=== PATIENT | male | born 1985 ===

== ENCOUNTER → 2016-07-30 | Outpatient (CLI) | payer SELFPAY ==
--- NOTE | 2016-07-30 11:35 | CR ---
EXAMINATION: Two-view chest (PA and Lateral views). HISTORY: Cough. FINDINGS: The trachea is midline. The cardiomediastinal silhouette is within normal limits. No pulmonary infil trates, effusions or pneumothorax. Osseous structures appear unremarkable. IMPRESSION: No acute cardiopulmonary process.
== END ==
LOC: MW.CHIM 10:17
PROVIDERS: ATTEND Internal Medicine
DX: R05 Cough (principal)
CPT/HCPCS: 36415; 71020; 71020-26; 85025